=== PATIENT | female | born 1935 | race African-American/Black ===

== ENCOUNTER → 2016-05-23 | Outpatient (CLI) | payer MEDICARE, MEDICAID ==
[~2016-05-23] MED LIST: ALEN70TA55 PO; AMIT25TA9 PO; ASPI81TA27 PO; CARV3.1240 PO; LEVO150T10 PO; LOSA100T27 PO
[2016-05-23 13:29] LABS: Basophils # (auto) 0 uL; Basophils % (auto) 0.6 % (0.0-2.0); Eosinophils # (auto) 0.3 uL; Eosinophils % (auto) 4.1 % (0.0-7.0); Hemoglobin 13.1 g/dL (12.2-16.2); Lymphocytes # (auto) 1.7 uL; Lymphocytes % (auto) 25.2 % (10.0-50.0); Mean Corpuscular Hemoglobin 30.8 pg (28.0-32.0); Mean Corpuscular Hgb Conc. 32.8 g/dL (32.0-36.0); Mean Platelet Volume 8.9 fL (7.4-10.4); Monocytes # (auto) 0.4 uL; Monocytes % (auto) 6.2 % (0.0-12.0); Neutrophils # (auto) 4.2 uL; Neutrophils % (auto) 63.9 % (37.0-80.0); Platelet Count (auto) 324 10^3/uL (140-450); Red Cell Distribution Width 14.7 % (11.6-16.0); White Blood Cell 6.6 10^3/uL (4.4-10.8)
[2016-05-23 13:45] LABS: Albumin 3.4 g/dL (3.4-5.0); BUN/Creatinine Ratio 23.4; Bilirubin, Total 0.4 mg/dL (0.2-1.0); Calcium 8.9 mg/dL (8.5-10.1); Potassium 3.9 mmol/L (3.5-5.1); Total Protein 7.4 g/dL (6.4-8.2)
== END | disposition home or self-care (01) ==
LOC: LAB 10:58
PROVIDERS: ATTEND Internal Medicine Cardiovascular Disease
DX: I10 Essential (primary) hypertension (principal); E03.9 Hypothyroidism, unspecified; D64.9 Anemia, unspecified
CPT/HCPCS: 36415; 80053; 84443; 85025

== ENCOUNTER 2016-10-24 10:38 | Emergency (ER) | payer MEDICARE, MEDICAID ==
[~2016-10-24] VITALS: Ht 134.6 cm; Wt 61.2 kg
[2016-10-24 11:21] VITALS: BP 131/70
[2016-10-24] MEDS ORDERED: KETOROLAC TROMETH 60MG/2ML VIAL IM ONE (11:30)
== END 2016-10-24 15:05 | disposition home or self-care (01) ==
LOC: ER 10:38 → EDBD 10:38 → ER 15:05
DX: G89.29 Other chronic pain (principal); M54.5 Low back pain; Z87.891 Personal history of nicotine dependence; J44.9 Chronic obstructive pulmonary disease, unspecified; E78.5 Hyperlipidemia, unspecified; I10 Essential (primary) hypertension; I25.10 Atherosclerotic heart disease of native coronary artery without angina pectoris; E07.9 Disorder of thyroid, unspecified; Z90.710 Acquired absence of both cervix and uterus; Z79.82 Long term (current) use of aspirin; Z79.899 Other long term (current) drug therapy
CPT/HCPCS: 96372; 99283; J1885

== ENCOUNTER → 2017-01-21 | Outpatient (CLI) | payer MEDICARE, MEDICAID ==
[~2017-01-21] MED LIST changes: +FERR-7 PO; +PANT40TA2 PO
[2017-01-21 12:39] LABS: Urine Bilirubin Negative (Negative); Urine Blood Negative /uL (Negative); Urine Color Yellow (Yellow); Urine Glucose Normal (Normal); Urine Ketone Negative (Negative); Urine Nitrite Negative (Negative); Urine Urobilinogen Normal (Negative); Urine pH 6.5 (5.0-8.0)
[2017-01-21 13:00] LABS: Albumin 3.2 g/dL (3.4-5.0); BUN/Creatinine Ratio 44.3; Bilirubin, Direct 0.1 mg/dL (0-0.2); Bilirubin, Total 0.2 mg/dL (0.2-1.0); Calcium 9.2 mg/dL (8.5-10.1); Potassium 4.2 mmol/L (3.5-5.1); Total Protein 7.4 g/dL (6.4-8.2)
[2017-01-21 13:07] LABS: Basophils # (auto) 0 uL; Basophils % (auto) 0.3 % (0.0-2.0); CONDITION Y; Eosinophils # (auto) 0.2 uL; Eosinophils % (auto) 3.9 % (0.0-7.0); Hematocrit 34.6 % (36.0-46.0); Hemoglobin 11.6 g/dL (12.2-16.2); Lymphocytes # (auto) 1.4 uL; Lymphocytes % (auto) 22.8 % (10.0-50.0); Mean Corpuscular Hemoglobin 32.2 pg (28.0-32.0); Mean Corpuscular Hgb Conc. 33.4 g/dL (32.0-36.0); Mean Corpuscular Volume 96.5 fL (80.0-100.0); Mean Platelet Volume 8.9 fL (7.4-10.4); Monocytes # (auto) 0.3 uL; Monocytes % (auto) 4.8 % (0.0-12.0); Neutrophils # (auto) 4.3 uL; Neutrophils % (auto) 68.2 % (37.0-80.0); Platelet Count (auto) 335 10^3/uL (140-450); Red Cell Distribution Width 15.7 % (11.6-16.0); White Blood Cell 6.3 10^3/uL (4.4-10.8)
== END | disposition home or self-care (01) ==
LOC: LAB 10:37
PROVIDERS: ATTEND Internal Medicine Cardiovascular Disease
DX: D64.9 Anemia, unspecified (principal); I10 Essential (primary) hypertension; E78.00 Pure hypercholesterolemia, unspecified; E03.9 Hypothyroidism, unspecified; E55.9 Vitamin D deficiency, unspecified; K74.1 Hepatic sclerosis; E11.9 Type 2 diabetes mellitus without complications; N39.0 Urinary tract infection, site not specified
CPT/HCPCS: 36415; 80048; 80061; 80076; 81003; 82306; 83036; 84443; 85025; 85652; 86141; 87086

== ENCOUNTER → 2017-02-03 | Outpatient (CLI) | payer MEDICARE, MEDICAID | END | disposition home or self-care (01) | LOC: LAB 11:03 | PROVIDERS: ATTEND Internal Medicine Cardiovascular Disease | DX: R50.9 Fever, unspecified (principal); J44.9 Chronic obstructive pulmonary disease, unspecified; I25.10 Atherosclerotic heart disease of native coronary artery without angina pectoris; I50.9 Heart failure, unspecified; Z95.2 Presence of prosthetic heart valve | CPT/HCPCS: 87040 ==

== ENCOUNTER → 2017-02-09 | Outpatient (CLI) | payer MEDICARE, MEDICAID ==
[~2017-02-09] VITALS: Ht 149.9 cm; Wt 56.2 kg
[~2017-02-09] MED LIST changes: +ADENOSINE 47 MG in GIVE UN-DILUTED 0 ML IV ONE; +ADENOSINE 90 MG/30 ML INJ IV ONE
== END | disposition home or self-care (01) ==
LOC: Rad HDHVI 09:04
PROVIDERS: ATTEND Internal Medicine Cardiovascular Disease
DX: R07.89 Other chest pain (principal); E78.5 Hyperlipidemia, unspecified; D64.9 Anemia, unspecified; M25.469 Effusion, unspecified knee; Z96.659 Presence of unspecified artificial knee joint; Z95.5 Presence of coronary angioplasty implant and graft; Z87.898 Personal history of other specified conditions
CPT/HCPCS: 78452; 93005; 93306; 96374; 96375; A9500; J0153

== ENCOUNTER → 2017-02-17 | Outpatient (CLI) | payer MEDICARE, MEDICAID ==
[~2017-02-17] MED LIST changes: -ADENOSINE 47 MG in GIVE UN-DILUTED 0 ML IV ONE; -ADENOSINE 90 MG/30 ML INJ IV ONE
== END | disposition home or self-care (01) ==
LOC: LAB 11:07
PROVIDERS: ATTEND Internal Medicine Cardiovascular Disease
DX: R19.5 Other fecal abnormalities (principal); I10 Essential (primary) hypertension
CPT/HCPCS: 82270

== ENCOUNTER → 2017-03-03 | Outpatient (CLI) | payer MEDICARE, MEDICAID ==
[~2017-03-03] MED LIST changes: +BIOT2500 PO; +CHOL20007 PO; +CYCL0.05 EACHEYE; +ESCI20TA51 PO; +GABA-497 PO; +LISI-646 PO; +NITR0.4S29 SL; +OMEG300C7 OR; +VENL37.56 PO
[2017-03-03 09:30] VITALS: BP 137/81
[2017-03-03 10:08] VITALS: BP 130/75
[2017-03-03 13:39] LABS: INR 0.97 (0.9-1.15); Partial Thromboplastin Time 24.6 sec (22.64-33.71); Prothrombin Time 10.6 sec (9.37-12.3)
[2017-03-03 13:46] LABS: BUN/Creatinine Ratio 44.3; Calcium 9.3 mg/dL (8.5-10.1)
[2017-03-03 18:36] LABS: Basophils # (auto) 0 uL; Basophils % (auto) 0.5 % (0.0-2.0); Eosinophils # (auto) 0 uL; Eosinophils % (auto) 0.6 % (0.0-7.0); Hematocrit 37.5 % (36.0-46.0); Hemoglobin 12.5 g/dL (12.2-16.2); Lymphocytes # (auto) 1.3 uL; Lymphocytes % (auto) 17.5 % (10.0-50.0); Mean Corpuscular Hemoglobin 32.6 pg (28.0-32.0); Mean Corpuscular Hgb Conc. 33.4 g/dL (32.0-36.0); Mean Corpuscular Volume 97.7 fL (80.0-100.0); Mean Platelet Volume 9.1 fL (6.9-10.8); Monocytes # (auto) 0.5 uL; Monocytes % (auto) 6.7 % (0.0-12.0); Neutrophils # (auto) 5.7 uL; Neutrophils % (auto) 74.7 % (37.0-80.0); Platelet Count (auto) 328 10^3/uL (140-450); Red Cell Distribution Width 13.5 % (11.8-14.3); White Blood Cell 7.6 10^3/uL (4.4-10.8)
== END | disposition home or self-care (01) ==
LOC: Rad HDHVI 09:16
PROVIDERS: ATTEND Internal Medicine Cardiovascular Disease
DX: Z01.818 Encounter for other preprocedural examination (principal); M48.54XA Collapsed vertebra, not elsewhere classified, thoracic region, initial encounter for fracture; I70.0 Atherosclerosis of aorta; D64.9 Anemia, unspecified; R79.1 Abnormal coagulation profile
CPT/HCPCS: 36415; 71020; 80048; 85025; 85610; 85730; G0463

== ENCOUNTER 2017-03-06 11:04 | Day surgery (SDC) | payer MEDICARE, MEDICAID ==
[~2017-03-06] VITALS: Ht 149.9 cm; Wt 54.4 kg
[~2017-03-06 11:04] MED LIST changes: -ALEN70TA55 PO; -AMIT25TA9 PO; -LOSA100T27 PO
[2017-03-06] MEDS ORDERED: IOHEXOL 350 MG/ML 100ML IJ ONE (11:54)
[2017-03-06] MEDS ORDERED: LIDOCAINE 2%HCL (LOCAL ANESTH.) INJ 20ML MDV ONE (11:54)
[2017-03-06] MEDS ORDERED: fentaNYL CITRATE 100 MCG/2 ML VL ONE (12:02)
[2017-03-06] MEDS ORDERED: ANGIOMAX 250 MG VIAL IV ONE (12:02)
[2017-03-06] MEDS ORDERED: MIDAZOLAM HCL 1MG/1ML-2 ML VIAL ONE (12:03)
[2017-03-06] MEDS ORDERED: SODIUM CHL 0.9% 0 ML ONE (12:04)
[2017-03-06] MEDS ORDERED: HYDROcodone-ACET 5/325MG TAB PO PRN (12:45)
[2017-03-06] MEDS ORDERED: ONDANSETRON HCL 4 MG/2 ML VIAL IV PRN (12:45)
[2017-03-06] MEDS ORDERED: LORazepam 0.5 MG TAB PO PRN (12:45)
== END 2017-03-06 15:20 | disposition home or self-care (01) ==
LOC: CATH 11:04
PROVIDERS: ATTEND Internal Medicine
DX: R94.39 Abnormal result of other cardiovascular function study (principal); I50.9 Heart failure, unspecified; I25.10 Atherosclerotic heart disease of native coronary artery without angina pectoris; J44.9 Chronic obstructive pulmonary disease, unspecified; J43.9 Emphysema, unspecified; Z90.710 Acquired absence of both cervix and uterus; F41.9 Anxiety disorder, unspecified; F32.9 Major depressive disorder, single episode, unspecified
CPT/HCPCS: 93458; C1760; C1894; J1644; J2250; J3010; J7030; Q9967; 99152; 99153

== ENCOUNTER → 2017-07-03 | Outpatient (CLI) | payer MEDICARE, MEDICAID ==
[~2017-07-03] MED LIST changes: -GABA-497 PO; +GABA300C10 PO
== END | disposition home or self-care (01) ==
LOC: Rad HDHVI 14:22
PROVIDERS: ATTEND Internal Medicine Cardiovascular Disease
DX: I70.0 Atherosclerosis of aorta (principal); I10 Essential (primary) hypertension; E78.5 Hyperlipidemia, unspecified
CPT/HCPCS: 93306

== ENCOUNTER → 2017-07-16 | Outpatient (CLI) | payer MEDICARE, MEDICAID ==
[~2017-07-16] VITALS: Ht 30.5 cm; Wt 0.5 kg
[~2017-07-16] MED LIST changes: +ADENOSINE 46 MG in GIVE UN-DILUTED 0 ML IV ONE; +ADENOSINE 90 MG/30 ML INJ IV ONE
== END | disposition home or self-care (01) ==
LOC: Rad HDHVI 13:51
PROVIDERS: ATTEND Internal Medicine Cardiovascular Disease
DX: D64.9 Anemia, unspecified (principal); I99.8 Other disorder of circulatory system; I10 Essential (primary) hypertension; E78.5 Hyperlipidemia, unspecified; E03.9 Hypothyroidism, unspecified; M17.11 Unilateral primary osteoarthritis, right knee; Z79.899 Other long term (current) drug therapy
CPT/HCPCS: 78452; 93005; 96374; 96375; A9500; J0153

== ENCOUNTER 2018-01-19 11:52 | Inpatient (IN) | payer MEDICARE, MEDICAID ==
[~2018-01-19] VITALS: Ht 149.9 cm; Wt 63.9 kg
[~2018-01-19 11:52] MED LIST changes: -ADENOSINE 46 MG in GIVE UN-DILUTED 0 ML IV ONE; -ADENOSINE 90 MG/30 ML INJ IV ONE
[2018-01-19] MEDS ORDERED: SODIUM CHLORIDE 0.9% 500 ML IVB ONE (11:58)
[2018-01-19 13:31] LABS: Basophils # (auto) 0 uL; Basophils % (auto) 0.2 % (0.0-2.0); Eosinophils # (auto) 0.2 uL; Hemoglobin 11.8 g/dL (12.2-16.2); Monocytes # (auto) 0.5 uL; Neutrophils # (auto) 6.9 uL
[2018-01-19 13:34] LABS: Eosinophils % (auto) 2.2 % (0.0-7.0); Hematocrit 33.9 % (36.0-46.0); Lymphocytes % (auto) 11.6 % (10.0-50.0); Mean Corpuscular Hgb Conc. 34.8 g/dL (32.0-36.0); Mean Corpuscular Volume 101.2 fL (80.0-100.0); Monocytes % (auto) 6.1 % (0.0-12.0); Neutrophils % (auto) 79.9 % (37.0-80.0); Platelet Count (auto) 249 10^3/uL (140-450); Red Blood Cells 3.35 10^6/uL (4.0-5.20); Red Cell Distribution Width 13.7 % (11.8-14.3); White Blood Cell 8.6 10^3/uL (4.4-10.8)
[2018-01-19 13:37] LABS: Mean Corpuscular Hemoglobin 34.9 pg (28.0-32.0)
[2018-01-19 13:45] LABS: INR 0.96 (0.9-1.15); Partial Thromboplastin Time 29.2 sec (23.78-33.04); Prothrombin Time 10.3 sec (9.27-12.13)
[2018-01-19 13:46] LABS: Albumin 2.9 g/dL (3.4-5.0); Anion Gap 10 (5-15); Blood Urea Nitrogen 40 mg/dL (7-18); Carbon Dioxide 20 mmol/L (21-32); Chloride 105 mmol/L (98-107); Glucose 79 mg/dL (74-106); Magnesium 2.2 mg/dL (1.6-2.6); Sodium 135 mmol/L (136-145)
[2018-01-19 13:48] LABS: BUN/Creatinine Ratio 10.6; GFR African American 15 mL/min; GFR Non-African American 12 mL/min
[2018-01-19 14:04] LABS: Alanine Aminotransferase 28 U/L (13-56); Alkaline Phosphatase 87 U/L (45-117); Aspartate Aminotransferase 50 U/L (15-37); Bilirubin, Total 0.4 mg/dL (0.2-1.0); Total Protein 7.3 g/dL (6.4-8.2)
[2018-01-19] MEDS ORDERED: NOREPINEPHRINE 8 MG/250ML KIT 250 ML IV ONE (14:15)
[2018-01-19] MEDS ORDERED: NOREPINEPHRINE 8 MG/250ML KIT 250 ML IV SCH (14:15)
[2018-01-19] MEDS ORDERED: ONDANSETRON HCL 4 MG/2 ML VIAL IV PRN (16:00)
[2018-01-19] MEDS: SODIUM CHLORIDE 0.9% 1,000 ML IV SCH (16:23)
[2018-01-19] MEDS ORDERED: cefTRIAXone 1GM/10ml IVPUSH 10 ML IV ONE (16:45)
[2018-01-19 18:26] LABS: Urine Amorphous Crystal FEW /hpf (None Seen); Urine Bacteria FEW /hpf (None Seen); Urine Blood 2+ /uL (Negative); Urine Hyaline Cast MOD /lpf (0 - 2); Urine Mucus FEW (None Seen); Urine Specific Gravity 1.018 (1.001-1.035); Urine WBC 3 /hpf (0 - 5)
[2018-01-19] MEDS: traMADol HCL 50 MG TAB PO PRN (18:38)
[2018-01-19 18:47] LABS: Alcohol, Urine < 3.0 mg/dL (0-5); Amphetamine Screen, Urine NEGATIVE (NEGATIVE); Barbiturate Scree,Urine NEGATIVE (NEGATIVE); Benzodiazephine Screen, Urine NEGATIVE (NEGATIVE); Cannabinoid Screen, Urine NEGATIVE (NEGATIVE); Cocaine Screen, Urine NEGATIVE (NEGATIVE); Opiate Scree,Urine POSITIVE (NEGATIVE); Phencyclidine Screen, Urine NEGATIVE (NEGATIVE)
[2018-01-19] MEDS: GABAPENTIN 300 MG CAP PO SCH (21:28)
[2018-01-20] MEDS: SODIUM CHLORIDE 0.9% 1,000 ML IV SCH ×3 (00:47→22:03)
[2018-01-20] MEDS: traMADol HCL 50 MG TAB PO PRN ×2 (00:47→07:10)
[2018-01-20] MEDS: LEVOTHYROXINE SODIUM 50 MCG TAB PO SCH (06:55)
[2018-01-20 07:47] LABS: Basophils # (auto) 0 uL; Basophils % (auto) 0.3 % (0.0-2.0); Eosinophils # (auto) 0.2 uL; Eosinophils % (auto) 1.8 % (0.0-7.0); Hematocrit 31.2 % (36.0-46.0); Hemoglobin 10.4 g/dL (12.2-16.2); Lymphocytes # (auto) 0.7 uL; Lymphocytes % (auto) 8.5 % (10.0-50.0); Mean Corpuscular Hemoglobin 33.7 pg (28.0-32.0); Mean Corpuscular Hgb Conc. 33.5 g/dL (32.0-36.0); Mean Corpuscular Volume 100.8 fL (80.0-100.0); Monocytes # (auto) 0.5 uL; Monocytes % (auto) 5.7 % (0.0-12.0); Neutrophils % (auto) 83.7 % (37.0-80.0); Platelet Count (auto) 247 10^3/uL (140-450); Red Blood Cells 3.09 10^6/uL (4.0-5.20); Red Cell Distribution Width 13.8 % (11.8-14.3); White Blood Cell 8.3 10^3/uL (4.4-10.8)
[2018-01-20 08:02] LABS: Calcium 8.8 mg/dL (8.5-10.1); Potassium 4.4 mmol/L (3.5-5.1)
[2018-01-20 08:08] LABS: BUN/Creatinine Ratio 19.5
[2018-01-20] MEDS: cefTRIAXone 1GM/10ml IVPUSH 10 ML IV SCH (09:24)
[2018-01-20] MEDS: PANTOPRAZOLE 40 MG TAB PO SCH (09:25)
[2018-01-20] MEDS: CITALOPRAM HYDROBR 20 MG TAB PO SCH (09:25)
[2018-01-20] MEDS: GABAPENTIN 300 MG CAP PO SCH ×2 (09:26→22:04)
[2018-01-20] MEDS ORDERED: OXYCODONE W/ ACETAMINOPHEN 5/325MG TABLET PO PRN (10:45)
[2018-01-20] MEDS: OXYCODONE W/ ACETAMINOPHEN 5/325MG TABLET PO PRN ×2 (11:04→20:37)
[2018-01-20 14:00] VITALS: BP 106/69
[2018-01-20 17:00] VITALS: BP 137/62
[2018-01-20 22:00] VITALS: BP 139/84
[2018-01-21 05:03] VITALS: BP 149/85
[2018-01-21] MEDS: OXYCODONE W/ ACETAMINOPHEN 5/325MG TABLET PO PRN ×2 (05:43→11:55)
[2018-01-21 06:15] LABS: Basophils # (auto) 0 uL; Eosinophils # (auto) 0.1 uL; Eosinophils % (auto) 0.9 % (0.0-7.0); Monocytes # (auto) 0.5 uL; Neutrophils # (auto) 6.8 uL; Nucleated Red Blood Cells % 0.1 %
[2018-01-21 06:18] LABS: Basophils % (auto) 0.5 % (0.0-2.0); Hematocrit 31.7 % (36.0-46.0); Hemoglobin 11.1 g/dL (12.2-16.2); Lymphocytes # (auto) 0.6 uL; Lymphocytes % (auto) 7.6 % (10.0-50.0); Mean Corpuscular Hemoglobin 35.2 pg (28.0-32.0); Mean Corpuscular Hgb Conc. 35.1 g/dL (32.0-36.0); Mean Corpuscular Volume 100.3 fL (80.0-100.0); Monocytes % (auto) 6.7 % (0.0-12.0); Neutrophils % (auto) 84.3 % (37.0-80.0); Platelet Count (auto) 240 10^3/uL (140-450); Red Blood Cells 3.16 10^6/uL (4.0-5.20); Red Cell Distribution Width 13.5 % (11.8-14.3); White Blood Cell 8.1 10^3/uL (4.4-10.8)
[2018-01-21] MEDS: LEVOTHYROXINE SODIUM 50 MCG TAB PO SCH (06:38)
[2018-01-21 06:42] LABS: BUN/Creatinine Ratio 19.4; Calcium 8.6 mg/dL (8.5-10.1); Magnesium 1.6 mg/dL (1.6-2.6); Potassium 3.4 mmol/L (3.5-5.1)
[2018-01-21 08:00] VITALS: BP 129/64
[2018-01-21] MEDS: SODIUM CHLORIDE 0.9% 1,000 ML IV SCH (08:13)
[2018-01-21 08:49] VITALS: BP 129/64
[2018-01-21] MEDS: CITALOPRAM HYDROBR 20 MG TAB PO SCH (09:10)
[2018-01-21] MEDS: GABAPENTIN 300 MG CAP PO SCH (09:10)
[2018-01-21] MEDS: PANTOPRAZOLE 40 MG TAB PO SCH (09:10)
[2018-01-21] MEDS: cefTRIAXone 1GM/10ml IVPUSH 10 ML IV SCH (09:10)
[2018-01-21 12:26] VITALS: BP 109/71
[2018-01-21] MEDS ORDERED: POTASSIUM CHL 20 Meq TABLET PO ONE (13:00)
== END 2018-01-21 14:24 | disposition home health service (06) | DRG 91 ==
LOC: EDBD 11:52 → ER 11:52 → OVERFLOW 11:53 → EAST 01-20 12:20 → TELE-EAST 01-20 12:51
PROVIDERS: ADMIT Internal Medicine; ATTEND Internal Medicine
DX: G92 Toxic encephalopathy (principal); N17.0 Acute kidney failure with tubular necrosis; J96.10 Chronic respiratory failure, unspecified whether with hypoxia or hypercapnia; E44.0 Moderate protein-calorie malnutrition; J44.9 Chronic obstructive pulmonary disease, unspecified; F32.9 Major depressive disorder, single episode, unspecified; E89.0 Postprocedural hypothyroidism; G89.29 Other chronic pain; I10 Essential (primary) hypertension; T40.605A Adverse effect of unspecified narcotics, initial encounter; I25.10 Atherosclerotic heart disease of native coronary artery without angina pectoris; M24.7 Protrusio acetabuli; I67.2 Cerebral atherosclerosis; Z96.659 Presence of unspecified artificial knee joint; M16.12 Unilateral primary osteoarthritis, left hip; Z90.710 Acquired absence of both cervix and uterus; Z79.899 Other long term (current) drug therapy; Z88.8 Allergy status to other drugs, medicaments and biological substances; Z79.82 Long term (current) use of aspirin; Z90.49 Acquired absence of other specified parts of digestive tract; Z87.891 Personal history of nicotine dependence; Y92.89 Other specified places as the place of occurrence of the external cause; Z68.28 Body mass index [BMI] 28.0-28.9, adult
CPT/HCPCS: 36415; 51702; 70450; 71045; 73502; 73560; 76775; 80048; 80053; 80307; 81001; 83605; 83735; 84443; 84484; 85025; 85610; 85730; 87040; 87081; 93005; 94761; 96361; 96374; 96376; 99291; J0696

== ENCOUNTER 2019-11-23 16:31 | Inpatient (IN) | payer MEDICARE, MEDICAID ==
[~2019-11-23] VITALS: Ht 162.6 cm; Wt 60.8 kg
[~2019-11-23 16:31] MED LIST changes: +ASPI-543 PO; -ASPI81TA27 PO; +VENL37.511 PO; -VENL37.56 PO
[2019-11-23 17:58] LABS: Basophils # (auto) 0 10 ^3/uL (0-0.2); Basophils % (auto) 0.5 % (0.0-2.0); Eosinophils # (auto) 0.4 10 ^3/uL (0-0.8); Eosinophils % (auto) 5.6 % (0.0-7.0); Hematocrit 31.7 % (36.0-46.0); Hemoglobin 10.5 g/dL (12.2-16.2); Lymphocytes # (auto) 1.2 10 ^3/uL (0.4-5.4); Lymphocytes % (auto) 16.4 % (10.0-50.0); Mean Corpuscular Hemoglobin 32.2 pg (28.0-32.0); Mean Corpuscular Hgb Conc. 33.3 g/dL (32.0-36.0); Mean Corpuscular Volume 96.8 fL (80.0-100.0); Monocytes # (auto) 0.5 10 ^3/uL (0-1.3); Monocytes % (auto) 6.9 % (0.0-12.0); Neutrophils # (auto) 5.3 10 ^3/uL (1.6-8.6); Neutrophils % (auto) 70.6 % (37.0-80.0); Platelet Count (auto) 291 10^3/uL (140-450); Red Blood Cells 3.27 10^6/uL (4.0-5.20); Red Cell Distribution Width 13.2 % (11.8-14.3); White Blood Cell 7.5 10^3/uL (4.4-10.8)
[2019-11-23] MEDS ORDERED: SODIUM CHLORIDE 0.9% 500 ML IV ONE (17:58)
[2019-11-23] MEDS ORDERED: CLINDAMYCIN 600MG IV 50 ML IV ONE (18:00)
[2019-11-23 18:21] LABS: Alanine Aminotransferase 10 U/L (13-56); Albumin 2.5 g/dL (3.4-5.0); Anion Gap 7 (5-15); Aspartate Aminotransferase 10 U/L (15-37); BUN/Creatinine Ratio 19.2; Blood Alcohol < 3.0 mg/dL (0-5); Blood Urea Nitrogen 15 mg/dL (7-18); Calcium 8.5 mg/dL (8.5-10.1); Carbon Dioxide 24 mmol/L (21-32); Chloride 113 mmol/L (98-107); GFR African American 91 mL/min; GFR Non-African American 75 mL/min; Glucose 77 mg/dL (74-106); Sodium 144 mmol/L (136-145)
[2019-11-23 18:24] LABS: Alkaline Phosphatase 92 U/L (45-117); Bilirubin, Total 0.4 mg/dL (0.2-1.0); Total Protein 6.9 g/dL (6.4-8.2)
[2019-11-23] MEDS ORDERED: POTASSIUM CHL 20MEQ/100ML 100 ML IV ONE ×2 (19:30→20:15)
[2019-11-23] MEDS ORDERED: ONDANSETRON HCL 4 MG/2 ML VIAL IV PRN (21:15)
[2019-11-23] MEDS ORDERED: DOCUSATE SOD 100 MG CAP PO PRN (21:15)
[2019-11-23] MEDS ORDERED: NITROGLYCERIN 0.4 MG SL TAB SL PRN (21:15)
--- NOTE | 2019-11-23 22:28 | NUR ---
Telemetry admit from ER HLALIE SMITH admitted to Telemetry unit after NO SBAR WAS received. Patient oriented to ADA harkins RN, unit, room, bed, and unit policies regarding patient care and visiting hours. Patient now on continuous telemetry monitoring, tele box # 77 and telemetry reading on arrival to unit is NSR at 90bpm.Patient placed on bedside oxygen 1 L/min via nasal cannula, weighed by bedscale and encouraged to call if they need something. All questions and concerns addressed, patient verbalized understanding.
[2019-11-23 22:30] LABS: Urine Bacteria MANY /hpf (None Seen); Urine Blood 1+ /uL (Negative); Urine Mucus FEW (None Seen); Urine WBC 756 /hpf (0 - 5); Urine WBC Clumps PRESENT /hpf (None Seen)
--- NOTE | 2019-11-23 22:30 | NUR ---
Patient had a large dark brown/black liquid BM. Patient cleaned and linen change completed. Patient repositioned for comfort. Call light is within reach. Will continue to monitor.
[2019-11-23 22:42] LABS: Alcohol, Urine < 3.0 mg/dL (0-10); Amphetamine Screen, Urine NEGATIVE (NEGATIVE); Barbiturate Scree,Urine NEGATIVE (NEGATIVE); Benzodiazephine Screen, Urine NEGATIVE (NEGATIVE); Cannabinoid Screen, Urine NEGATIVE (NEGATIVE); Cocaine Screen, Urine NEGATIVE (NEGATIVE); Opiate Scree,Urine NEGATIVE (NEGATIVE); Phencyclidine Screen, Urine NEGATIVE (NEGATIVE)
[2019-11-23 23:00] VITALS: BP 129/72
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
[2019-11-23] MEDS: SODIUM CHLOR 0.9% PF (SALINE LOCK) 10ML VIAL/SYR IV SCH (23:14)
[2019-11-23] MEDS: AMPICILLIN & SULBACTAM SODIUM 3 GM in SODIUM CHL 0.9% 100 ML IV SCH (23:30)
--- NOTE | 2019-11-24 00:12 | NUR ---
ROUNDING Patient is laying in bed awake, no complaints of pain or distress noted. Footsteps were audible in the hallway, patient stated her mother was coming but she was going the wrong way and that I needed to go get her. Oriented the patient to her surroundings reminding her she was at the hospital, no visitors were allowed, and it was an employee walking. Patient stated, "Oh yes, now I remember." Bed alarm is on. Call light is within reach. Will continue to monitor.
--- NOTE | 2019-11-24 00:40 | NUR ---
Patient had a small dark brown/black liquid BM. Patient cleaned and linen change completed. Wound photo taken of perianal area. Z-guard applied to inner thighs. Patient repositioned for comfort. Call light is within reach. Will continue to monitor.
--- NOTE | 2019-11-24 00:58 | NUR ---
ADMIT WOUND PHOTO TAKEN OF REDNESS TO PERIANAL AREA.
[2019-11-24] MEDS ORDERED: MEGE40TA15 PO (02:37)
[2019-11-24] MEDS ORDERED: AMIT25TA9 PO (02:37)
[2019-11-24] MEDS ORDERED: ALEN1TAB32 PO (02:37)
[2019-11-24] MEDS: AMPICILLIN & SULBACTAM SODIUM 3 GM in SODIUM CHL 0.9% 100 ML IV SCH ×4 (03:32→21:43)
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
--- NOTE | 2019-11-24 05:20 | NUR ---
IV removal due to infiltration from Left hand IV DC'd with clean sterile technique, catheter fully intact. Pressure dressing applied to site. Patient tolerated well.
[2019-11-24 05:30] VITALS: BP 140/71
--- NOTE | 2019-11-24 05:40 | NUR ---
Patient had a small black liquid BM. Patient cleaned and linen change completed. Z-guard applied to inner thighs and sacrum. Patient repositioned for comfort. Call light is within reach. Will continue to monitor.
[2019-11-24] MEDS: SODIUM CHLOR 0.9% PF (SALINE LOCK) 10ML VIAL/SYR IV SCH ×3 (06:06→21:43)
[2019-11-24 06:36] LABS: Basophils # (auto) 0 10 ^3/uL (0-0.2); Basophils % (auto) 0.4 % (0.0-2.0); Eosinophils # (auto) 0.4 10 ^3/uL (0-0.8); Eosinophils % (auto) 5.3 % (0.0-7.0); Hematocrit 32.4 % (36.0-46.0); Hemoglobin 10.9 g/dL (12.2-16.2); Lymphocytes # (auto) 1.2 10 ^3/uL (0.4-5.4); Lymphocytes % (auto) 14.9 % (10.0-50.0); Mean Corpuscular Hemoglobin 32.5 pg (28.0-32.0); Mean Corpuscular Hgb Conc. 33.6 g/dL (32.0-36.0); Mean Corpuscular Volume 96.6 fL (80.0-100.0); Monocytes # (auto) 0.4 10 ^3/uL (0-1.3); Monocytes % (auto) 5.1 % (0.0-12.0); Neutrophils # (auto) 5.8 10 ^3/uL (1.6-8.6); Neutrophils % (auto) 74.3 % (37.0-80.0); Platelet Count (auto) 270 10^3/uL (140-450); Red Blood Cells 3.36 10^6/uL (4.0-5.20); Red Cell Distribution Width 13.4 % (11.8-14.3); White Blood Cell 7.8 10^3/uL (4.4-10.8)
[2019-11-24 06:57] LABS: Albumin 2.5 g/dL (3.4-5.0); BUN/Creatinine Ratio 14.1; Calcium 8.3 mg/dL (8.5-10.1); Magnesium 1.7 mg/dL (1.6-2.6); Potassium 3.3 mmol/L (3.5-5.1)
[2019-11-24 07:00] LABS: Bilirubin, Total 0.5 mg/dL (0.2-1.0); Total Protein 6.8 g/dL (6.4-8.2)
[2019-11-24 07:08] LABS: Folate (Folic Acid) 10.66 ng/mL (5.38-24)
--- NOTE | 2019-11-24 08:25 | NUR ---
Neurology Consult Dr. Eric mariscal.
--- NOTE | 2019-11-24 08:35 | NUR ---
Opening Shift Note Assumed care of patient, awake and alert to self and place. No S/S of distress/SOB or pain. Patient asking permission for parents to visit and states that she has money for her nephew who is upstairs. Informed patient that her nephew is not here and that we are not allowing visitors at this time. Instructed on POC and to call for assist PRN, will continue to monitor for changes Q1hr and PRN.
[2019-11-24] MEDS ORDERED: LORazepam 2MG/ML-1ML VIAL IV ONE (08:45)
[2019-11-24] MEDS ORDERED: LORazepam 2MG/ML-1ML VIAL IV PRN (09:00)
[2019-11-24] MEDS ORDERED: cefTRIAXone 1GM/50ML D5W 50 ML IV SCH (09:00)
[2019-11-24 09:44] VITALS: BP 141/85
--- NOTE | 2019-11-24 11:00 | NUR ---
Dr. Collins rounded on patient.
--- NOTE | 2019-11-24 11:04 | NUR ---
Unasyn Medication is not on unit. As per pharmacy, 2 were sent up, however none seen. Pharmacy will resend.
--- NOTE | 2019-11-24 11:05 | NUR ---
Peter Requested pharmacy to send
[2019-11-24] MEDS ORDERED: MAGNESIUM OXIDE 400 MG TAB PO ONE (12:15)
[2019-11-24] MEDS ORDERED: POTASSIUM EFFERVESENT TAB 25 MEQ PO ONE (12:15)
[2019-11-24] MEDS ORDERED: HALOPERIDOL 1 MG TAB PO PRN (12:15)
[2019-11-24] MEDS: ACETAMINOPHEN 325 MG TAB PO PRN ×2 (13:25→22:01)
[2019-11-24 14:40] VITALS: BP 136/89
--- NOTE | 2019-11-24 16:00 | NUR ---
Patient sitting out of bed in chair.
[2019-11-24 16:58] VITALS: BP 144/88
--- NOTE | 2019-11-24 19:20 | NUR ---
Opening Shift Note Patient AOx4 as of now. Patient is receiving a tele-psyche consult. Patient awake and sitting in bed. No s/s of distress or SOB. POC discussed w/ patient and patient has verbally agreed to understanding. Bed locked in lowest position w/ HOB at 30 degrees and call light within reach. Will continue to monitor.
[2019-11-24] MEDS: MAGNESIUM OXIDE 400 MG TAB PO SCH (21:44)
[2019-11-24 22:00] VITALS: BP 149/81
--- NOTE | 2019-11-25 02:15 | NUR ---
Patient Requests Pain Medication Patient complains about Right Knee pain, according to the patient she has a history of arthritis and takes [place] at home for pain [id number]. Hospitalist paged for request to obtain pain medication PRN.
[2019-11-25] MEDS: AMPICILLIN & SULBACTAM SODIUM 3 GM in SODIUM CHL 0.9% 100 ML IV SCH ×4 (02:50→21:34)
--- NOTE | 2019-11-25 03:28 | NUR ---
Order for Medication Received Pain medication given as prescribed. Will continue to monitor patient.
[2019-11-25] MEDS: HYDROcodone-ACET 5/325MG TAB PO PRN ×2 (03:31→17:14)
[2019-11-25 05:30] VITALS: BP 151/84
[2019-11-25] MEDS: SODIUM CHLOR 0.9% PF (SALINE LOCK) 10ML VIAL/SYR IV SCH ×3 (06:00→21:24)
[2019-11-25] MEDS: LEVOTHYROXINE SODIUM 50 MCG TAB PO SCH (06:32)
[2019-11-25 06:41] LABS: Potassium 3.3 mmol/L (3.5-5.1)
[2019-11-25 06:45] LABS: BUN/Creatinine Ratio 4.5; Calcium 8.3 mg/dL (8.5-10.1)
[2019-11-25] MEDS ORDERED: LEVOTHYROXINE SODIUM 50 MCG TAB PO SCH (07:00)
--- NOTE | 2019-11-25 08:00 | NUR ---
Opening Shift Note Assumed care of patient, awake and alert with periods of confusion, visual and auditory hallucinations. No S/S of distress/SOB or pain. Safety precaution in placed. Instructed on POC and to call for assist PRN, will continue to monitor for changes Q1hr and PRN.
[2019-11-25 08:30] VITALS: BP 158/97
[2019-11-25] MEDS: ENOXAPARIN SOD 30 MG/0.3 ML SYRINGE SC SCH (10:43)
[2019-11-25] MEDS: MAGNESIUM OXIDE 400 MG TAB PO SCH ×2 (10:43→21:24)
[2019-11-25 12:30] VITALS: BP 156/91
[2019-11-25] MEDS ORDERED: POTASSIUM EFFERVESENT TAB 25 MEQ PO ONE (12:30)
--- NOTE | 2019-11-25 14:30 | NUR ---
ELECTROENCEPHALOGRAM COMPLETED AT BEDSIDE. PRIMARY RN SIENA AWARE.
[2019-11-25 16:25] VITALS: BP 158/112
[2019-11-25 17:35] VITALS: BP 154/90
--- NOTE | 2019-11-25 17:37 | NUR ---
BP systolic steady on the 150's, paged operations manager station Dr. Hawk, waiting for call back.
--- NOTE | 2019-11-25 17:49 | NUR ---
assessment re: ss consult lives alone and needs assistance Patient is a 84 year old female who is confused. Per patients sister Terra [phone] prior to admission patient lived home alone and needed assistance. Patient is on service with [facility]. Patient has a [facility] caregiver. Patients son Chi [phone] is her POA. Chi will be picking patient up on discharge and she will be going with family in [place]. I will notifiy Darrion socially responsible investment adviser from [facility] of patients discharge plan. Terra verbalized understanding and agreed to discharge plan home with family. Addendum: 11/25/19 at 1753 by Denisse ERWIN Amended: Links added.
--- NOTE | 2019-11-25 19:30 | NUR ---
Opening Shift Note Assumed care of patient, awake and alert. No S/S of distress/SOB or pain. Fall and safety precautions in place. Call light within reach and able to use. Instructed on POC and to call for assist PRN, patient verbalized understanding and in agreement. Will continue to monitor for changes Q1hr and PRN.
[2019-11-25 22:00] VITALS: BP 117/77
[2019-11-26] MEDS: HYDROcodone-ACET 5/325MG TAB PO PRN (01:15)
[2019-11-26] MEDS: AMPICILLIN & SULBACTAM SODIUM 3 GM in SODIUM CHL 0.9% 100 ML IV SCH ×3 (03:33→15:15)
[2019-11-26 05:00] VITALS: BP 127/81
[2019-11-26] MEDS: SODIUM CHLOR 0.9% PF (SALINE LOCK) 10ML VIAL/SYR IV SCH ×2 (05:17→14:00)
[2019-11-26] MEDS: LEVOTHYROXINE SODIUM 50 MCG TAB PO SCH (06:05)
[2019-11-26] MEDS: ACETAMINOPHEN 325 MG TAB PO PRN ×2 (06:10→15:22)
--- NOTE | 2019-11-26 06:12 | NUR ---
RE: PAIN - ON-CALL PAGED PATIENT C/O PAIN TO BILATERAL KNEES RATED 9/10 USING ADULT PAIN SCALE. PATIENT EDUCATED ON NEXT TIME FOR PAIN MEDICATION DUE AND AVAILABLE MEDICATION AT THIS TIME, PATIENT VERBALIZED UNDERSTANDING AND IN AGREEMENT (SEE EMAR FOR ADMINISTRATION). ON-CALL HOSP PAGED TO UPDATED MD ON PATIENT'S CURRENT PAIN LEVEL AND PATIENT'S COMPLAINT OF INADEQUATE PAIN MANAGEMENT. AWAITING CALL BACK. WILL CONTINUE TO MONITOR.
--- NOTE | 2019-11-26 06:25 | NUR ---
ON-CALL HOSP RECEIVED RECEIVED CALL BACK FROM MD. UPDATED MD ON PATIENT COMPLAINT AND PATIENT STATUS. NEW ORDER RECEIVED, READ BACK AND VERIFIED (SEE EMAR FOR ADMINISTRATION). WILL CARRY OUT. WILL CONTINUE TO MONITOR
[2019-11-26] MEDS ORDERED: HYDROcodone-ACET 5/325MG TAB PO PRN (06:30)
--- NOTE | 2019-11-26 07:15 | NUR ---
RE: PAIN MEDICATION MEDICATION NOT YET AVAILABLE IN PATIENT'S MEDICATION PYXIS. NOTIFIED DAY SHIFT RN AND PATIENT, VERBALIZED UNDERSTANDING AND IN AGREEMENT. FALL AND SAFETY PRECAUTIONS IN PLACE. CALL LIGHT WITHIN REACH AND ABLE TO USE. REPORT GIVEN TO DAY SHIFT RN.
--- NOTE | 2019-11-26 07:30 | NUR ---
Opening Shift Note Assuming care of patient at this time. Patient is complaining of right knee pain at this time. Per report, new orders for pain medication were put in during shift change. Will medicate according to doctor's orders. Patient shows no signs or symptoms of distress or shortness of breath. Bed is locked and lowered with side rails up x2. Instructed patient on the plan of care for today and to call for assistance as needed. Call light within reach. Will continue to round hourly and as needed.
--- NOTE | 2019-11-26 08:32 | NUR ---
Call to Pharmacy Call to pharmacy regarding patient's unasyn. Not located in patient's non-fridge IV cassette. fire management technician to bullet up medication.
[2019-11-26 09:00] VITALS: BP 145/85
[2019-11-26] MEDS: ENOXAPARIN SOD 30 MG/0.3 ML SYRINGE SC SCH (09:52)
[2019-11-26] MEDS: MAGNESIUM OXIDE 400 MG TAB PO SCH (09:52)
[2019-11-26 13:00] VITALS: BP 120/77
[2019-11-26 15:04] VITALS: BP 120/77
--- NOTE | 2019-11-26 17:20 | NUR ---
Discharge Discharge instructions given as ordered. Encourage to follow up with primary care provider as instructed. Patient is moving to [place], so patient is aware that primary care provider needs to be chosen as soon as possible. Patient should be seen within the next week or two. All questions and concerns addressed. Patient verbalized understanding. Medication reconciliation form completed and copy given to patient. Home medications held in Pharmacy returned to patient. IV removed with catheter intact, pressure dressing applied, dennison catheter removed. Telemetry unit returned to ICU. Patient taken to vehicle via wheelchair with all personal belongings, accompanied by staff and family member. No distress noted at time of departure.
== END 2019-11-26 17:30 | disposition home or self-care (01) | DRG 689 ==
LOC: EDBD 16:31 → ER 16:31 → TELE 16:32 → TELE-WESTW 22:28
PROVIDERS: ADMIT Internal Medicine; ATTEND Internal Medicine
DX: N39.0 Urinary tract infection, site not specified (principal); G92 Toxic encephalopathy; E44.0 Moderate protein-calorie malnutrition; L03.115 Cellulitis of right lower limb; E87.6 Hypokalemia; F03.90 Unspecified dementia, unspecified severity, without behavioral disturbance, psychotic disturbance, mood disturbance, and anxiety; E03.9 Hypothyroidism, unspecified; B96.20 Unspecified Escherichia coli [E. coli] as the cause of diseases classified elsewhere; E78.5 Hyperlipidemia, unspecified; J44.9 Chronic obstructive pulmonary disease, unspecified; F32.9 Major depressive disorder, single episode, unspecified; I25.10 Atherosclerotic heart disease of native coronary artery without angina pectoris; I10 Essential (primary) hypertension; Z82.3 Family history of stroke; Z82.49 Family history of ischemic heart disease and other diseases of the circulatory system; Z83.3 Family history of diabetes mellitus; Z90.710 Acquired absence of both cervix and uterus; Z82.5 Family history of asthma and other chronic lower respiratory diseases; Z88.5 Allergy status to narcotic agent
CPT/HCPCS: 36415; 36600; 70450; 71045; 80048; 80053; 80307; 80320; 81001; 82607; 82746; 82805; 82962; 83605; 83735; 84439; 84443; 85025; 85652; 87040; 87086; 87088; 87186; 93005; 93971; 95819; 96361; 96374; 97116; 97163; 99291; G0378; J3480; J3490

== ENCOUNTER 2020-01-15 17:36 | Inpatient (IN) | payer MEDICARE, MEDICAID ==
[~2020-01-15] VITALS: Ht 149.9 cm; Wt 63.1 kg
[~2020-01-15 17:36] MED LIST changes: +ALEN1TAB32 PO; +AMIT25TA9 PO; +MEGE40TA15 PO
[2020-01-15] MEDS ORDERED: SODIUM CHLORIDE 0.9% 500 ML IV ONE (18:30)
[2020-01-15 19:28] LABS: Urine Bacteria MANY /hpf (None Seen); Urine Blood Negative /uL (Negative); Urine Mucus FEW (None Seen); Urine Specific Gravity 1.025 (1.001-1.035); Urine WBC 70 /hpf (0 - 5)
[2020-01-15 19:44] LABS: Amphetamine Screen, Urine NEGATIVE (NEGATIVE); Barbiturate Scree,Urine NEGATIVE (NEGATIVE); Benzodiazephine Screen, Urine NEGATIVE (NEGATIVE); Cannabinoid Screen, Urine NEGATIVE (NEGATIVE); Cocaine Screen, Urine NEGATIVE (NEGATIVE); Opiate Scree,Urine NEGATIVE (NEGATIVE); Phencyclidine Screen, Urine NEGATIVE (NEGATIVE)
[2020-01-15] MEDS ORDERED: cefTRIAXone 1GM/50ML D5W 50 ML IV ONE (20:00)
[2020-01-15 20:13] LABS: Alcohol, Urine < 3.0 mg/dL (0-10)
[2020-01-15 21:29] LABS: Basophils # (auto) 0 10 ^3/uL (0-0.2); Basophils % (auto) 0.5 % (0.0-2.0); Eosinophils # (auto) 0.2 10 ^3/uL (0-0.8); Eosinophils % (auto) 1.9 % (0.0-7.0); Hemoglobin 11.9 g/dL (12.2-16.2); Lymphocytes # (auto) 1.2 10 ^3/uL (0.4-5.4); Lymphocytes % (auto) 14.1 % (10.0-50.0); Mean Corpuscular Hemoglobin 30.5 pg (28.0-32.0); Mean Corpuscular Hgb Conc. 32.3 g/dL (32.0-36.0); Mean Corpuscular Volume 94.5 fL (80.0-100.0); Monocytes # (auto) 0.5 10 ^3/uL (0-1.3); Monocytes % (auto) 5.8 % (0.0-12.0); Neutrophils # (auto) 6.7 10 ^3/uL (1.6-8.6); Neutrophils % (auto) 77.7 % (37.0-80.0); Nucleated Red Blood Cells % 0.2 %; Platelet Count (auto) 322 10^3/uL (140-450); Red Blood Cells 3.92 10^6/uL (4.0-5.20); Red Cell Distribution Width 14.3 % (11.8-14.3); White Blood Cell 8.6 10^3/uL (4.4-10.8)
[2020-01-15] MEDS ORDERED: ONDANSETRON ODT 4 MG TAB PO ONE (21:45)
[2020-01-15] MEDS ORDERED: HYDROcodone-ACET 5/325MG TAB PO ONE (21:45)
[2020-01-15 21:48] LABS: Anion Gap 8 (5-15); Blood Urea Nitrogen 20 mg/dL (7-18); Calcium 8.9 mg/dL (8.5-10.1); Carbon Dioxide 21 mmol/L (21-32); Chloride 113 mmol/L (98-107); Glucose 107 mg/dL (74-106); Magnesium 2.2 mg/dL (1.6-2.6); Potassium 3.3 mmol/L (3.5-5.1); Sodium 142 mmol/L (136-145)
[2020-01-15 21:49] LABS: Acetaminophen < 2.0 ug/mL (10-30); Salicylate < 1.7 mg/dL (2.8-20.0)
[2020-01-15 21:51] LABS: Blood Alcohol < 3.0 mg/dL (0-5)
[2020-01-15 21:52] LABS: Alanine Aminotransferase 9 U/L (13-56); Alkaline Phosphatase 94 U/L (45-117); Aspartate Aminotransferase 8 U/L (15-37); BUN/Creatinine Ratio 28.6; Bilirubin, Total 0.7 mg/dL (0.2-1.0); GFR African American 103 mL/min; GFR Non-African American 85 mL/min; Total Protein 7.8 g/dL (6.4-8.2)
[2020-01-15] MEDS ORDERED: SODIUM CHLORIDE 0.9% 1,000 ML IV SCH (23:35)
[2020-01-15] MEDS ORDERED: NITROGLYCERIN 0.4 MG SL TAB SL PRN (23:45)
[2020-01-15] MEDS ORDERED: DOCUSATE SOD 100 MG CAP PO PRN (23:45)
[2020-01-15] MEDS ORDERED: PATIENTS OWN MEDICATION (Alendronate Sodium 1 TAB) PO SCH (23:45)
[2020-01-15] MEDS ORDERED: ONDANSETRON HCL 4 MG/2 ML VIAL IV PRN (23:45)
[2020-01-15] MEDS ORDERED: SODIUM CHLORIDE 0.9% 1,000 ML IV ONE (23:45)
[2020-01-16] VITALS (7 sets, daily range): BP systolic 101–124; BP diastolic 39–79
--- NOTE | 2020-01-16 01:53 | NUR ---
PATIENT ARRIVED TO UNIT. NO DISTRESS NOTED. PER COB SAWYER, PATIENT DOWNGRADED IN ER TO MED/SURGE.
[2020-01-16] MEDS: ACETAMINOPHEN 325 MG TAB PO PRN ×3 (02:26→15:32)
[2020-01-16] MEDS: LEVOTHYROXINE SODIUM 50 MCG TAB PO SCH (06:27)
[2020-01-16] MEDS: HYDROcodone-ACET 5/325MG TAB PO PRN ×2 (06:27→13:05)
[2020-01-16] MEDS: MEGESTROL ACETATE 20 MG TAB PO SCH ×2 (09:09→22:54)
[2020-01-16] MEDS: GABAPENTIN 300 MG CAP PO SCH ×2 (09:09→22:54)
[2020-01-16] MEDS: FERROUS SULFATE 325 MG TAB PO SCH (09:09)
[2020-01-16] MEDS: PANTOPRAZOLE 40 MG TAB PO SCH (09:09)
[2020-01-16] MEDS: ASPirin-EC 81 mg tab PO SCH (09:10)
[2020-01-16] MEDS: VENLAFAXINE HCL 37.5MG TABLET PO SCH (09:10)
[2020-01-16] MEDS: CARVEDILOL 3.125 MG TAB PO SCH (09:10)
[2020-01-16] MEDS: LISINOPRIL 20 MG TAB PO SCH (10:00)
[2020-01-16] MEDS: cefTRIAXone 1GM/50ML D5W 50 ML IV SCH (13:11)
[2020-01-16] MEDS: AMITRIPTYLINE HCL 25 MG TAB PO SCH (22:55)
[2020-01-17] MEDS: HYDROcodone-ACET 5/325MG TAB PO PRN ×3 (00:30→22:07)
[2020-01-17 05:00] VITALS: BP 103/74
[2020-01-17] MEDS: LEVOTHYROXINE SODIUM 50 MCG TAB PO SCH (06:37)
[2020-01-17 06:40] LABS: Basophils # (auto) 0 10 ^3/uL (0-0.2); Basophils % (auto) 0.6 % (0.0-2.0); Eosinophils # (auto) 0.3 10 ^3/uL (0-0.8); Eosinophils % (auto) 5.9 % (0.0-7.0); Hematocrit 30.9 % (36.0-46.0); Hemoglobin 10.2 g/dL (12.2-16.2); Lymphocytes # (auto) 1.2 10 ^3/uL (0.4-5.4); Lymphocytes % (auto) 21.5 % (10.0-50.0); Mean Corpuscular Hemoglobin 31.4 pg (28.0-32.0); Mean Corpuscular Volume 95.2 fL (80.0-100.0); Monocytes # (auto) 0.3 10 ^3/uL (0-1.3); Monocytes % (auto) 5.7 % (0.0-12.0); Neutrophils # (auto) 3.8 10 ^3/uL (1.6-8.6); Neutrophils % (auto) 66.3 % (37.0-80.0); Platelet Count (auto) 284 10^3/uL (140-450); Red Blood Cells 3.25 10^6/uL (4.0-5.20); Red Cell Distribution Width 14.6 % (11.8-14.3); White Blood Cell 5.7 10^3/uL (4.4-10.8)
[2020-01-17 06:45] LABS: BUN/Creatinine Ratio 33.3; Calcium 8.2 mg/dL (8.5-10.1); Potassium 3.5 mmol/L (3.5-5.1)
--- NOTE | 2020-01-17 07:20 | NUR ---
End of Shift Note Endorsed care to dayshift RN. At this time patient has no s/s of distress or SOB.
--- NOTE | 2020-01-17 07:25 | NUR ---
Opening Note Received report from lieutenant shift supervisor RN. Patient is awake and alert resting in bed. Patient is oriented to name and place at this time. Patient is on room air, respirations even and unlabored. Patient denies pain at this time. Reviewed plan of care with patient. Bed in low and locked position, call light within reach. Will continue to monitor Q1 hour and PRN.
[2020-01-17] MEDS: LISINOPRIL 20 MG TAB PO SCH (10:00)
[2020-01-17] MEDS: MEGESTROL ACETATE 20 MG TAB PO SCH ×2 (10:06→21:45)
[2020-01-17] MEDS: cefTRIAXone 1GM/50ML D5W 50 ML IV SCH (10:06)
[2020-01-17] MEDS: GABAPENTIN 300 MG CAP PO SCH ×2 (10:06→21:44)
[2020-01-17] MEDS: ASPirin-EC 81 mg tab PO SCH (10:07)
[2020-01-17] MEDS: VENLAFAXINE HCL 37.5MG TABLET PO SCH (10:07)
[2020-01-17] MEDS: CARVEDILOL 3.125 MG TAB PO SCH (10:07)
[2020-01-17] MEDS: PANTOPRAZOLE 40 MG TAB PO SCH (10:07)
--- NOTE | 2020-01-17 10:55 | NUR ---
Dr. Patterson at bedside MD at bedside discussing plan of care with patient and this RN. New orders received to discontinue Farfan catheter. Will implement orders, will continue to monitor Q1 hour and PRN.
--- NOTE | 2020-01-17 12:52 | NUR ---
Assessment Patient is an 84-year-old female with Dementia. Assessment was completed with patient brother Steve . Per Steve prior to admission patient lived in a room & board and does not want her to return because they did not care for well. Per Steve he does not remember the name of the place. Per Steve he has been in contact with [facility] for correction and would like patient to be discharge to [facility] upon d/. Informed Steve clinical information will be faxed to facility. Per Steve patient has home oxygen and a walker for home use. Informed Steve he has a right to participate in all discharge planning. Steve verbalized understanding and agreed to discharge plan. Faxed clinical information to [facility]. Patrice Phillips with [facility] [phone] patient has been accepted. Addendum: 01/17/20 at 1257 by ABHISHEK ERWIN Amended: Links added.
--- NOTE | 2020-01-17 13:02 | NUR ---
Pain Patient complains of pain 8/10 to leg and and hip. Will medicate per orders. Will continue to monitor Q1 hour and PRN.
--- NOTE | 2020-01-17 13:15 | NUR ---
Farfan catheter removed Order to discontinue Farfan catheter. Farfan removed with clean technique following deflation of balloon. Patient tolerated well with no complaints of pain. Patient instructed to call for assistance. Will continue to monitor Q1 hour and PRN.
--- NOTE | 2020-01-17 13:45 | NUR ---
Pain reassessment Patient denies pain at this time. Patient resting in bed, no signs or symptoms of distress noted at this time. Will continue to monitor Q1 hour and PRN.
--- NOTE | 2020-01-17 19:03 | NUR ---
Closing Note Report given to plastering contractor RN. No signs or symptoms of distress noted at this time.
[2020-01-17] MEDS: AMITRIPTYLINE HCL 25 MG TAB PO SCH (21:45)
[2020-01-17 22:00] VITALS: BP 117/82
[2020-01-18 05:47] VITALS: BP 120/77
[2020-01-18] MEDS: HYDROcodone-ACET 5/325MG TAB PO PRN ×2 (06:54→10:44)
[2020-01-18] MEDS: LEVOTHYROXINE SODIUM 50 MCG TAB PO SCH (06:54)
--- NOTE | 2020-01-18 07:15 | NUR ---
End of Shift Note Endorsed care to dayshift RN. At this time patient has no s/s of distress or SOB.
--- NOTE | 2020-01-18 07:30 | NUR ---
Opening shift note Assumed care of patient from NOC RN. Patient is AOx3, no signs and symptoms of distress or shortness of breath noted. Bed is in lowest locked position, side rails up x2, and call light is within reach. Updated patient on plan of care, patient verbalized understanding but reinforcement is needed. Will continue to monitor q1hr and PRN.
[2020-01-18 09:00] VITALS: BP 115/74
[2020-01-18] MEDS: cefTRIAXone 1GM/50ML D5W 50 ML IV SCH (10:43)
[2020-01-18] MEDS: FERROUS SULFATE 325 MG TAB PO SCH (10:44)
[2020-01-18] MEDS: PANTOPRAZOLE 40 MG TAB PO SCH (10:44)
[2020-01-18] MEDS: GABAPENTIN 300 MG CAP PO SCH (10:44)
[2020-01-18] MEDS: LISINOPRIL 20 MG TAB PO SCH (10:45)
[2020-01-18] MEDS: ASPirin-EC 81 mg tab PO SCH (10:45)
[2020-01-18] MEDS: MEGESTROL ACETATE 20 MG TAB PO SCH (10:45)
[2020-01-18] MEDS: VENLAFAXINE HCL 37.5MG TABLET PO SCH (10:45)
[2020-01-18] MEDS: CARVEDILOL 3.125 MG TAB PO SCH (10:46)
--- NOTE | 2020-01-18 11:44 | NUR ---
D/C planning Placed follow up call to [facility] advising Jacqueline patient has discharge orders for today. Per Jacqueline patient will be going to room [address] Hung. Transportation has been arranged with [employer] via [employer]/ oxygen with a 14:30 picker tender helper time. Informed LASHAUN Padilla.
--- NOTE | 2020-01-18 11:47 | NUR ---
[facility] [phone]
--- NOTE | 2020-01-18 11:55 | NUR ---
Received call from Audience Development Manager Received call from Hannah NOGUERA. Per Hannah patient has been accepted to [facility] to room [address] Hung. Transportation is scheduled for 1430 with [employer] [facility].
[2020-01-18 12:19] VITALS: BP 107/58
[2020-01-18 13:00] VITALS: BP 127/81
--- NOTE | 2020-01-18 14:42 | NUR ---
Report Report given to [facility] RN [facility].
--- NOTE | 2020-01-18 15:40 | NUR ---
Patient picked up by transportation team Adonis Ibrahim. No s/s of distress noted.
--- NOTE | 2020-01-18 15:45 | NUR ---
Patients contact, Steve was notified of pickling grader. Steve verbalized understanding.
== END 2020-01-18 15:40 | DRG 871 ==
LOC: ER 17:36 → EDBD 17:36 → WEST WING 17:37
PROVIDERS: ADMIT Hospitalist; ATTEND Internal Medicine
DX: A41.9 Sepsis, unspecified organism (principal); G92 Toxic encephalopathy; N39.0 Urinary tract infection, site not specified; R44.1 Visual hallucinations; F03.90 Unspecified dementia, unspecified severity, without behavioral disturbance, psychotic disturbance, mood disturbance, and anxiety; I10 Essential (primary) hypertension; E03.9 Hypothyroidism, unspecified; J44.9 Chronic obstructive pulmonary disease, unspecified; I25.10 Atherosclerotic heart disease of native coronary artery without angina pectoris; Z83.3 Family history of diabetes mellitus; E78.5 Hyperlipidemia, unspecified; Z90.49 Acquired absence of other specified parts of digestive tract; Z90.710 Acquired absence of both cervix and uterus; Z82.3 Family history of stroke
CPT/HCPCS: 36415; 51702; 70450; 80048; 80053; 80307; 80320; 80329; 81001; 83735; 83880; 84443; 85025; 87040; 87081; 87086; 87088; 87186; 96361; 96365; 96366; G0378; J0696; J2405; Q0162